=== PATIENT | female | born 1975 | race Caucasian/White ===

== ENCOUNTER 2020-03-12 09:05 | Emergency (ER) | payer OTHER ==
[~2020-03-12] VITALS: Ht 162.6 cm; Wt 70.3 kg
[2020-03-12] MEDS ORDERED: SEROQUEL 25 MG25 MG PO (09:16)
[2020-03-12] MEDS ORDERED: BUSPAR30 MG PO (09:16)
[2020-03-12 10:12] LABS: ABSOLUTE NEUTROPHILS 7.3 thou/uL (1.4-8.2); BASOPHILS 0.6 % (0.0-2.0); EOSINOPHILS 0.4 % (0.0-3.0); HEMOGLOBIN 13.6 gm/dL (12.0-15.0); LYMPHOCYTES 16.1 % (24.0-44.0); MCH 32.9 pg (26.0-34.0); MCHC 34.1 g/dL (28.0-37.0); MCV 96.3 fL (80.0-100.0); MONOCYTES 3.6 % (1.0-8.0); PLATELET COUNT 190 thou/uL (150-400); POLYS 79.3 % (36.0-66.0); RBC 4.15 mil/uL (4.20-5.00); RDW 14.8 % (10.5-14.5); WBC 9.2 thou/uL (4.0-11.0)
[2020-03-12 10:23] LABS: CALCIUM 8.5 mg/dL (8.5-10.1); CREATININE 0.7 mg/dL (0.6-1.0)
[2020-03-12 13:46] LABS: AMP/METHAMP Negative (Negative); BARBITURATES Negative (Negative); BENZODIAZEPINES Negative (Negative); COCAINE Negative (Negative); METHADONE Negative (Negative); OPIATES Negative (Negative); PCP Negative (Negative)
[2020-03-13 14:35] VITALS: BP 121/63
== END 2020-03-13 14:35 ==
LOC: ER 09:05
PROVIDERS: Emergency Medicine
DX: R45.851 Suicidal ideations (principal); R44.0 Auditory hallucinations; F32.9 Major depressive disorder, single episode, unspecified; J45.909 Unspecified asthma, uncomplicated; F17.210 Nicotine dependence, cigarettes, uncomplicated; Z20.828 Contact with and (suspected) exposure to other viral communicable diseases